=== PATIENT | female | born 1985 | race Caucasian/White ===

== ENCOUNTER 2018-03-24 19:09 | Emergency (ER) | payer BC ==
[2018-03-24] MEDS ORDERED: Ondansetron INJ* 2 MG/ML VIAL IV ONE (20:04)
[2018-03-24] MEDS ORDERED: Pantoprazole IV* 40 MG IV ONE (20:05)
[2018-03-24 20:24] LABS: ABS Basophils 0.1 10^3/ul (0-0.2); ABS Eosinophils 0.1 10^3/ul (0-0.6); ABS Lymphocytes 3.4 10^3/ul (1.0-4.8); ABS Monocytes 0.8 10^3/ul (0-0.8); ABS Neutrophils 6.2 10^3/ul (1.5-7.7); ABS Nucleated RBC 0 10^3/ul; Eosinophil % 1.3 % (0-6); Hematocrit 39 % (35-47); Hemoglobin 13.2 g/dl (12.0-16.0); Mean Corpuscular HGB Conc 34 g/dl (31-36); Mean Corpuscular Hemoglobin 29 pg (27-31); Mean Corpuscular Volume 84 fL (80-97); Mean Platelet Volume 8.2 um3 (7.4-10.4); Nucleated Red Blood Cells % 0.1; Platelet Count 319 10^3/ul (150-450); Red Blood Count 4.59 10^6/ul (4.00-5.40); Red Cell Distribution Width 13 % (10.5-15); White Blood Count 10.6 10^3/ul (3.5-10.8)
--- NOTE | 2018-03-24 20:25 | ED ---
GI/ HPI - HPI Summary HPI Summary: 32-year-old female presents with abdominal pain for the past 3 days. She states she's had this pain for the past month. She states that she had negative u/s so they have been treating her as a gastritis with omeprazole and sulfracate which she has been on for the past month. She states that her primary told her if gets worse come to ER. She states her pain was better until the past couple days and then the pain got worst. She denies any blood in her stool. She admits to nausea but no vomiting. No dysuria. No urgency or frequency. She denies any abnormal vaginal discharge. She has not eatten anything different. The pain is sharp. Does not change with food. She denies any ETOH or ibuprofen use. She denies any fevers. - History of Current Complaint Chief Complaint: EDAbdPain Time Seen by Provider: 03/24/18 20:01 Stated Complaint: ABD PAIN Hx Last Menstrual Period: MIRENA IUD Pain Intensity: 4 - Allergy/Home Medications Allergies/Adverse Reactions: Allergies Allergy/AdvReac Type Severity Reaction Status Date / Time No Known Allergies Allergy Verified 05/16/16 21:34 PMH/Surg Hx/FS Hx/Imm Hx Endocrine/Hematology History: Denies: Hx Diabetes, Hx Thyroid Disease Cardiovascular History: Reports: Hx Angina, Hx Hypertension Denies: Hx Congestive Heart Failure, Hx Deep Vein Thrombosis, Hx Myocardial Infarction, Hx Pacemaker/ICD Respiratory History: Denies: Hx Asthma, Hx Chronic Obstructive Pulmonary Disease (COPD), Hx Lung Cancer, Hx Pneumonia, Hx Pulmonary Embolism GI History: Reports: Hx Gastroesophageal Reflux Disease Denies: Hx Ulcer Neurological History: Denies: Hx Seizures Psychiatric History: Reports: Hx Anxiety, Hx Depression - Surgical History Surgery Procedure, Year, and Place: DISCECTOMY. right knee laparoscope - cleaned out under cap Infectious Disease History: No Infectious Disease History: Denies: Hx Clostridium Difficile, Hx Hepatitis, Hx Human Immunodeficiency Virus (HIV), Hx of Known/Suspected MRSA, Hx Shingles, Hx Tuberculosis, Hx Known/ Suspected VRE, Hx Known/Suspected VRSA, History Other Infectious Disease, Traveled Outside the [place] in Last 30 Days - Family History Known Family History: Positive: Cardiac Disease, Hypertension - Social History Alcohol Use: None Substance Use Type: Reports: None Hx Tobacco Use: Yes - Former cigarette smoker, current eCigarette user Smoking Status (MU): Light Every Day Tobacco Smoker Type: Cigarettes Amount Used/How Often: 5-6 CIG/DAY Have You Smoked in the Last Year: Yes Review of Systems Negative: Fever Negative: Chest Pain Negative: Shortness Of Breath Positive: Abdominal Pain, Nausea. Negative: Vomiting, Diarrhea All Other Systems Reviewed And Are Negative: Yes Physical Exam Triage Information Reviewed: Yes Vital Signs On Initial Exam: Initial Vitals Temp Pulse Resp BP Pulse Ox 98.4 F 90 20 147/93 97 03/24/18 19:13 03/24/18 19:13 03/24/18 19:13 03/24/18 19:13 03/24/18 19:13 Vital Signs Reviewed: Yes Appearance: Positive: Well-Appearing Skin: Positive: Warm, Dry Head/Face: Positive: Normal Head/Face Inspection Eyes: Positive: Normal, Conjunctiva Clear ENT: Positive: Pharynx normal Respiratory/Lung Sounds: Positive: Clear to Auscultation, Breath Sounds Present Cardiovascular: Positive: Normal, RRR Abdomen Description: Positive: Soft, Other: - tenderness RUQ pain Bowel Sounds: Positive: Present Musculoskeletal: Positive: Normal Neurological: Positive: Normal Psychiatric: Positive: Normal Diagnostics - Vital Signs Vital Signs Temp Pulse Resp BP Pulse Ox 03/24/18 19:13 98.4 F 90 20 147/93 97 - Laboratory Result Diagrams: 03/24/18 20:08 03/24/18 20:08 Lab Statement: Any lab studies that have been ordered have been reviewed, and results considered in the medical decision making process. - Ultrasound No standard instances Ultrasound Interpretation: Positive (See Comments) - IMPRESSION: 1. No shadowing gallstones. Mildly thickened gallbladder wall, likely secondary to partial gallbladder contraction. 2. Pancreas obscured by bowel gas. 3. Hepatic steatosis Ultrasound Interpretation Completed By: Radiologist NICOLE Course/Dx - Course Course Of Treatment: 32-year-old female presents with abdominal pain for the past 3 days. She states she's had this pain for the past month. She states that she had negative u/s so they have been treating her as a gastritis with omeprazole and sulfracate which she has been on for the past month. She states that her primary told her if gets worse come to ER. She states her pain was better until the past couple days and then the pain got worst. She denies any blood in her stool. She admits to nausea but no vomiting. No dysuria. No urgency or frequency. She denies any abnormal vaginal discharge. She has not eatten anything different. The pain is sharp. Does not change with food. She denies any ETOH or ibuprofen use. She denies any fevers. on exam has tenderness RUQ. wbc normal. crp normal. lipase normal. urine likely contaminant. u/s shows contraction. pain could be due to biliary colic vs gastritis. patient will add on pepcid to meds taking and follow up with GI. patient understand and agrees with plan. - Diagnoses Differential Diagnoses - Female: Gall Bladder Disease, Gastritis, Pancreatitis Provider Diagnoses: Abdominal pain Discharge - Sign-Out/Discharge Documenting (check all that apply): Patient Departure - Discharge Plan Condition: Good Disposition: HOME Patient Education Materials: Abdominal Pain (ED) Referrals: Familia PITT,Deyvi Rudd [Primary Care Provider] - Samy Enamorado MD [Medical Doctor] - Additional Instructions: Follow up with GI continue meds as prescribed by primary avoid fatty foods Return to ED if develop fever or any new or worsening symptoms - Billing Disposition and Condition Condition: GOOD Disposition: Home
[2018-03-24 20:35] LABS: EGFR Non-African American 80.9 (>60)
[2018-03-24 20:56] LABS: Urine Appearance Clear; Urine Blood 2+ (Negative); Urine Color Yellow; Urine Ketones Negative (Negative); Urine Protein Negative (Negative); Urine Red Blood Cell 1+(3-5/hpf) (Absent); Urine Urobilinogen Negative (Negative); Urine White Blood Cell Trace(0-5/hpf) (Absent)
--- NOTE | 2018-03-24 22:25 | RAD ---
EXAM: US Abdomen Limited, Right Upper Quadrant CLINICAL HISTORY: 32 years old, female; Pain; Abdominal pain; Localized; Right upper quadrant (ruq); Additional info: Ruq pain TECHNIQUE: Real-time ultrasound of the right upper quadrant with image documentation. COMPARISON: No relevant prior studies available. FINDINGS: Limitations: The study was limited by bowel gas. Liver: The liver is diffusely echogenic consistent with fatty infiltration. No intrahepatic bile duct dilation. Gallbladder: Gallbladder wall appears mildly thickened, but assessment is limited by incomplete distention. No calcified gallstones identified. Common bile duct: Could not be visualized due to bowel gas. Pancreas: The pancreas is obscured by bowel gas. Right kidney: The right kidney measures 10.9 x 4.8 x 6 cm. No stones. No hydronephrosis. IMPRESSION: 1. No shadowing gallstones. Mildly thickened gallbladder wall, likely secondary to partial gallbladder contraction. 2. Pancreas obscured by bowel gas. 3. Hepatic steatosis
[2018-03-24 23:03] VITALS: BP 129/90
== END 2018-03-24 23:03 | disposition home or self-care (01) ==
LOC: ED 19:09
DX: R10.11 Right upper quadrant pain (principal); F17.210 Nicotine dependence, cigarettes, uncomplicated; I10 Essential (primary) hypertension; K76.0 Fatty (change of) liver, not elsewhere classified
CPT/HCPCS: 36415; 76705; 80053; 81003; 81015; 83690; 84702; 85025; 86140; 87086; 96374; 96375; 99283; J2405

== ENCOUNTER 2018-07-08 10:38 | Emergency (ER) | payer BC ==
--- OUTSIDE RECORDS SUMMARY | 2018-07-08 10:53 | XMS REPORT | Continuity of Care Document ---
:1985 External Reference #:[id number] Author Name Leeann Hanley Care Team Providers Name Role Phone Deyvi Barbosa MD Primary Care Physician Unavailable Payers Type Date Identification Numbers Payment Provider Subscriber Effective: Policy Number: [id number] [employer] Raquel Garcia 2017 PayID: [id number] [address] [address] [place] [address] Expires: 2017 Policy Number: [id number] [employer] Raquel Garcia PayID: [id number] [address] [address] [place] [address] Advance Directives Description No Information Available Problems Date Description Provider Status Onset: 03/28/2014 Gastroesophageal reflux disease Samy Enamorado MD Active Onset: 03/28/2017 Constipation Samy Enamorado MD Active Onset: 02/25/2017 Tachycardia Samy Enamorado MD Active Onset: 03/28/2016 Obesity Samy Enamorado MD Active Family History Date Family Member(s) Problem(s) Comments Father due to Unknown Causes () Father due to MGF - [place] - still () - MGM-uncontrolled living AFIB HTN Mother Diabetes Mother Hypertension Mother Hypertension SVT Social History Type Date Description Comments Sex Unknown Marital Status Single Lives With Children 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 018 empty Fei, stomach in MD morning Sucralfate Active Tablets 1gm 1 gram Unknown 018 before meals and at bedtime Diltiazem CD Active Caps ER 180mg 30caps 1 by mouth R00.0 Qutaybeh 017 24HR every day Kristen Diaz M.D. Omeprazole Hx Capsules DR 20mg 1 by mouth Unknown 018 - every day since 018 [facility] ER Cardizem Hx Tablets 30mg 90tabs 1 by mouth Qutaybdilia 017 - tid S. Son Diaz M.D. Metoprolol 0 Hx Tablets 25mg 1 by mouth Unknown Tartrate 000 - twice a day 017 Lisinopril /0 Hx Tablets 10mg 1 by mouth Unknown 000 - every day 017 Immunizations Description No Information Available Vital Signs Date Vital Result Comment 06/11/2018 3:17pm Height 64 inches 5'4" Weight 249.00 lb Heart Rate 78 /min BP Systolic 138 mmHg BP Diastolic 78 mmHg Respiratory Rate 18 /min Body Temperature 97.9 F Pain Level 0 BMI (Body Mass Index) 42.7 kg/m2 04/09/2018 4:23pm Height 64 inches 5'4" Weight 246.50 lb W/ Shoes Heart Rate 88 /min BP Systolic Sitting 132 mmHg Lue Large Cuff BP Diastolic Sitting 88 mmHg Lue Large Cuff BMI (Body Mass Index) 42.3 kg/m2 Ejection Fraction 55-60% ECHO 12/28/16 03/28/2018 8:48am Height 64 inches 5'4" Weight 249.00 lb Heart Rate 96 /min BP Systolic 134 mmHg BP Diastolic 97 mmHg Body Temperature 98.4 F O2 % BldC Oximetry 98 % BMI (Body Mass Index) 42.7 kg/m2 05/12/2017 9:47am Height 64 inches 5'4" Weight 255.00 lb with flip flops Heart Rate 96 /min BP Systolic Sitting 120 mmHg Lue large cuff BP Diastolic Sitting 82 mmHg Lue large cuff BP Systolic Standing 122 mmHg Lue large cuff BP Diastolic Standing 86 mmHg Lue large cuff Respiratory Rate 16 /min BMI (Body Mass Index) 43.8 kg/m2 Ejection Fraction 55-60% echo 12/28/16 03/28/2017 12:55pm Height 64 inches 5'4" Weight 248.00 lb with shoes Heart Rate 96 /min BP Systolic Sitting 142 mmHg Lue lrg cuff BP Diastolic Sitting 90 mmHg Lue lrg cuff BP Systolic Standing 142 mmHg Lue lrg cuff BP Diastolic Standing 98 mmHg Lue lrg cuff Respiratory Rate 16 /min BMI (Body Mass Index) 42.6 kg/m2 Ejection Fraction 55-60% 12/28/2016-echo 11/30/2016 1:50pm Height 64 inches 5'4" Weight 243.25 lb with shoes Heart Rate 98 /min BP Systolic 132 mmHg Ra lrg cuff BP Diastolic 84 mmHg Ra lrg cuff BP Systolic Sitting 116 mmHg LA lrg cuff BP Diastolic Sitting 84 mmHg LA lrg cuff BMI (Body Mass Index) 41.7 kg/m2 Results Test Date Facility Test Result H/L Range Note Laboratory test 05/08/2018 [facility] Clotest SEE RESULT [address] [place] [address] [phone] Laboratory test 05/08/2018 [facility] Surgical SEE RESULT [address] [place] [address] [phone] 1 SEE RESULT BELOW Name: RAQUEL GARCIA : [address]: Samy Enamorado MD Acct: [id number] Unit: [id number] AGE: 32 Location: ENDO Re05/08/18 SEX: F Status: REG REF SPEC: [id number] YOLIE: 05/08/18-1099 DR: Samy Enamorado MD REQ: [id number] RECD: 05/08/18 STATUS: NIDIA HEREDIA DR: Deyvi Barbosa MD _ SOURCE: GAS ANTRUM SPDESC: ORDERED: Clotest Procedure Result Reported Site Clotest Final 05/09/18800 ML Clotest Negative * ML - Main Lab . END OF REPORT DEPARTMENT OF PATHOLOGY, [address] [place] [address] Zain Strange M.D. Director [facility] # [id number] 2 SEE RESULT BELOW Name: RAQUEL GARCIA : [address]: Samy Enamorado MD Acct: [id number] Unit: [id number] AGE: 32 Location: ENDO Re05/08/18 SEX: F Status: DEP REF SPEC: [id number] YOLIE: 05/08/18-9 [facility] DR: Samy Enamorado MD REQ: [id number] RECD: 05/08/18 STATUS: RODO HEREDIA DR: Deyvi Barbosa MD _ ORDERED: LEVEL 4 FINAL DIAGNOSIS Gastroesophageal junction, biopsy: -- Squamous and columnar mucosa with chronic inflammation. -- Intestinal metaplasia is absent. -- Dysplasia is absent. CLINICAL HISTORY Epigastric pain POST-OPERATIVE DIAGNOSIS EGD: esophagus - normal; no erosions, esophagogastric 38, nodule at 8:00; biopsy (4); stomach - normal; duodenum - normal; conclusions: esophagitis with nodule; gastric retention; epigastric pain; obesity GROSS DESCRIPTION The specimen is received in formalin labeled, Biopsy EG Junction, and consists of a 0.6 x 0.5 x 0.2 cm aggregate of peng-red irregular soft tissue fragments which is submitted entirely in one cassette. Signed by and Reported on: Rosanne Mena MD 05/09/18 1111 END OF REPORT DEPARTMENT OF PATHOLOGY, [address] [place] [address] Zain Strange M.D. Director [facility] # [id number] Procedures Date Code Description Status 05/08/2018 45047 Endoscopy Upper GI Biopsy Completed 04/09/2018 87363 EKG Tracing & Interpretation Completed 05/03/2017 53704 Holter Monitor Review (24 hr)dr review & interp only Completed 05/02/2017 03774 ECG Monitor/Recording W/Visual Superimposition Scanning Completed 01/04/2017 19617 Treadmill Interp/Report Only Completed 01/04/2017 85046 Stress Test Supervsn W/Out I/R Completed 12/28/2016 02403 ECHO Transthoracic, Real-Time 2D With Doppler And Color Completed Flow 12/20/2016 59673 ECHO Stress Test Incl Perf Contiuous ekg Monitoring W/Phys Completed Superv 12/20/2016 13847 Holter Monitor Review (24 hr)dr review & interp only Completed 12/15/2016 14701 ECG Monitor/Recording W/Visual Superimposition Scanning Completed 11/30/2016 09734 EKG Tracing & Interpretation Completed Encounters Type Date Location Provider Dx Diagnosis Office Visit 06/11/2018 [facility] Samy Horn R10.13 Epigastric pain 2:15p MD Fei K21.9 Gastro-esophageal reflux disease without esophagitis Office Visit 04/09/2018 4:40p Sonu Peterson E55.9 [facility] Danyel Diaz deficiency, unspecified R00.0 Tachycardia, unspecified I10 Essential (primary) hypertension Office Visit 03/28/2018 [facility] Samy Horn R10.816 Epigastric 8:15a MD Fei abdominal tenderness K59.00 Constipation, unspecified R63.5 Abnormal weight gain R00.0 Tachycardia, unspecified Office Visit 05/12/2017 10:00a [facility] Brit Crowell, R00.0 Tachycardia, Of [facility] unspecified I10 Essential (primary) hypertension Office Visit 03/28/2017 1:00p [facility] Brit Crowell, I10 Essential (primary) Of [facility] hypertension R00.0 Tachycardia, unspecified R00.2 Palpitations R06.02 Shortness of breath Office Visit 01/09/2017 [facility] Qutaybeh S. R00.0 Tachycardia, 11:00a Cardiology Of Danyel Diaz unspecified [facility] I10 Essential (primary) hypertension R00.2 Palpitations E55.9 Vitamin D deficiency, unspecified Office Visit 11/30/2016 2:20p [facility] Janie S. I10 Essential Danyel Diaz (primary) hypertension R00.0 Tachycardia, unspecified R00.2 Palpitations R07.9 Chest pain, unspecified E66.9 Obesity, unspecified R94.31 Abnormal electrocardiogram [ECG] [EKG] Plan of Treatment Future Appointment(s):12/10/2018 2:00 pm - Samy Enamorado MD at [facility] [id number]/19/2018 - Samy Enamorado, MDR10.13 Epigastric painFollow up :6 thsnzxA26.9 Gastro-esophageal reflux disease without esophagitisFollow up:6 months
[2018-07-08 11:17] VITALS: BP 132/82
--- NOTE | 2018-07-08 11:52 | UC ---
Respiratory Complaint HPI - HPI Summary HPI Summary: has had cold symptoms for 4 weeks, over past week she has become worse with sinus pain and pressure, and bilateral ear pain and tactile fever has been using OTC cold med w/o relief - History of Current Complaint Chief Complaint: UCRespiratory Stated Complaint: SINUS PAIN Time Seen by Provider: 07/08/18 11:02 Hx Obtained From: Patient Hx Last Menstrual Period: mirana ?: No Onset/Duration: Gradual Onset Severity Initially: Mild Severity Currently: Mild Pain Intensity: 1 Associated Signs And Symptoms: Positive: Fever, Chills, Nasal Congestion, Sinus Discomfort. Negative: Wheezing, Hemoptysis - Allergies/Home Medications Allergies/Adverse Reactions: Allergies Allergy/AdvReac Type Severity Reaction Status Date / Time No Known Allergies Allergy Verified 07/08/18 11:17 PMH/Surg Hx/FS Hx/Imm Hx Previously Healthy: Yes Cardiovascular History: Hypertension GI/ History: Gastroesophageal Reflux - Surgical History Surgical History: Yes Surgery Procedure, Year, and Place: DISCECTOMY. right knee laparoscope - cleaned out under cap - Family History Known Family History: Positive: Cardiac Disease, Hypertension - Social History Occupation: Employed Full-time Lives: With Family Alcohol Use: Rare Substance Use Type: None Smoking Status (MU): Light Every Day Tobacco Smoker Type: Cigarettes Amount Used/How Often: 5-6 CIG/DAY Have You Smoked in the Last Year: Yes Household Exposure Type: Cigarettes Cessation Counseling: Patient Advised to Stop - Immunization History Most Recent Influenza Vaccination: 2014 Review of Systems All Other Systems Reviewed And Are Negative: Yes Constitutional: Positive: Fever, Fatigue Skin: Positive: Negative Eyes: Positive: Negative ENT: Positive: Ear Ache, Sinus Congestion, Sinus Pain/Tenderness. Negative: Nasal Discharge Respiratory: Positive: Negative. Negative: Cough Cardiovascular: Positive: Negative Gastrointestinal: Positive: Negative. Negative: Abdominal Pain, Nausea Genitourinary: Positive: Negative. Negative: Dysuria Musculoskeletal: Positive: Negative Neurological: Positive: Headache - mild over past 2 days Psychological: Positive: Negative Is Patient Immunocompromised?: No Physical Exam Triage Information Reviewed: Yes Appearance: Well-Appearing, No Pain Distress, Obese Vital Signs: Initial Vital Signs Temp 97.8 F 07/08/18 11:14 Pulse 102 07/08/18 11:14 Resp 18 07/08/18 11:14 BP 132/82 07/08/18 11:14 Pulse Ox 97 07/08/18 11:14 Vital Signs Reviewed: Yes Eyes: Positive: Conjunctiva Clear ENT: Positive: Pharynx normal, Nasal congestion, TM dull, Sinus tenderness Dental: Negative: Percussion Tenderness @ Neck: Positive: Supple, Nontender, No Lymphadenopathy Respiratory Exam: Normal Respiratory: Positive: Lungs clear Cardiovascular Exam: Normal Cardiovascular: Positive: RRR Neurological Exam: Normal Psychological Exam: Normal Skin Exam: Normal Skin: Negative: Rashes UC Diagnostic Evaluation - Laboratory O2 Sat by Pulse Oximetry: 97 Respiratory Course/Dx - Differential Dx/Diagnosis Differential Diagnosis/HQI/PQRI: Bronchitis, Influenza, Lower Resp Infection, Sinusitis Provider Diagnosis: Sinusitis Discharge - Sign-Out/Discharge Documenting (check all that apply): Patient Departure All imaging exams completed and their final reports reviewed: No Studies - Discharge Plan Condition: Good Disposition: HOME Prescriptions: Azithromycin TAB* [Zithromax TAB (Z-ADRY) 250 mg #6 tabs] 2 tab PO .TODAY, THEN 1 DAILY #1 adry Referrals: Familia PITT,Deyvi Rudd [Primary Care Provider] - 2 Days (if no improvement) Additional Instructions: drink plenty of fluids and use over the counter decongestant for sinuses use Tylenol as directed for fevers - Billing Disposition and Condition Condition: GOOD Disposition: Home
== END 2018-07-08 11:55 | disposition home or self-care (01) ==
LOC: UCEAST 10:38
DX: J32.9 Chronic sinusitis, unspecified (principal); I10 Essential (primary) hypertension; F17.210 Nicotine dependence, cigarettes, uncomplicated
CPT/HCPCS: 99212; G0463

== ENCOUNTER 2018-11-20 20:59 | Emergency (ER) | payer BC ==
[2018-11-20 21:23] VITALS: BP 139/87
--- NOTE | 2018-11-20 22:21 | UC ---
Respiratory Complaint HPI - HPI Summary HPI Summary: 5-6 DAYS OF SINUS PRESSURE AND RIGHT EAR DISCOMFORT. NO COUGH OR PURULENT NASAL DRAINAGE. HAS SOME MILD POSTNASAL DRIP. NO FEVER, NAUSEA/VOMITING. - History of Current Complaint Chief Complaint: UCGeneralIllness Stated Complaint: SINUS CONGESTION Time Seen by Provider: 11/20/18 22:01 Hx Obtained From: Patient Hx Last Menstrual Period: mirana Onset/Duration: Gradual Onset, Lasting Days, Still Present Timing: Constant Severity Initially: Mild Severity Currently: Mild Pain Intensity: 2 Pain Scale Used: 0-10 Numeric Aggravating Factors: Nothing Alleviating Factors: Nothing Associated Signs And Symptoms: Positive: Sinus Discomfort. Negative: Dyspnea, Fever, Chills, Wheezing - Allergies/Home Medications Allergies/Adverse Reactions: Allergies Allergy/AdvReac Type Severity Reaction Status Date / Time No Known Allergies Allergy Verified 11/20/18 21:23 PMH/Surg Hx/FS Hx/Imm Hx Cardiovascular History: Hypertension - Surgical History Surgical History: Yes Surgery Procedure, Year, and Place: DISCECTOMY. right knee laparoscope - cleaned out under cap - Family History Known Family History: Positive: Cardiac Disease, Hypertension - Social History Alcohol Use: Rare Substance Use Type: None Smoking Status (MU): Light Every Day Tobacco Smoker Type: Cigarettes Amount Used/How Often: 5-6 CIG/DAY Have You Smoked in the Last Year: Yes Household Exposure Type: Cigarettes - Immunization History Most Recent Influenza Vaccination: 2014 Review of Systems All Other Systems Reviewed And Are Negative: Yes Constitutional: Positive: Negative ENT: Positive: Sinus Congestion, Other - PND Respiratory: Positive: Negative Cardiovascular: Positive: Negative Gastrointestinal: Positive: Negative Physical Exam Triage Information Reviewed: Yes Appearance: Well-Appearing, No Pain Distress, Well-Nourished Vital Signs: Initial Vital Signs Temp 97.5 F 11/20/18 21:19 Pulse 97 11/20/18 21:19 Resp 20 11/20/18 21:19 BP 139/87 11/20/18 21:19 Pulse Ox 98 11/20/18 21:19 Vital Signs Reviewed: Yes Eyes: Positive: Conjunctiva Clear ENT: Positive: Hearing grossly normal, Pharynx normal, TMs normal Neck: Positive: Supple, Nontender, No Lymphadenopathy Respiratory Exam: Normal Cardiovascular Exam: Normal Abdomen Description: Positive: Soft Musculoskeletal: Positive: No Edema Neurological: Positive: Alert Psychological: Positive: Age Appropriate Behavior Skin: Negative: Rashes Respiratory Course/Dx - Differential Dx/Diagnosis Provider Diagnosis: Viral sinusitis Discharge - Sign-Out/Discharge Documenting (check all that apply): Patient Departure All imaging exams completed and their final reports reviewed: No Studies - Discharge Plan Condition: Stable Disposition: HOME Patient Education Materials: Sinusitis (ED) Referrals: Familia PITT,Deyvi Rudd [Primary Care Provider] - If Needed Additional Instructions: YOUR SYMPTOMS ARE LIKELY VIRALLY MEDIATED AND SHOULD RESOLVE ON THEIR OWN WITH TIME. NO INDICATION FOR ANTIBIOTICS AT PRESENT. REST, HYDRATE, OTC MEDS NEEDED. SEEK FOLLOW-UP IF YOU ARE NOT IMPROVING OVER THE NEXT 1-2 WEEKS. USE OTC AFRIN FOR NASAL CONGESTION. 2 SPRAYS IN EACH NOSTRIL TWICE DAILY NEEDED. DO NOT USE FOR MORE THAN 3-4 DAYS IN A ROW TO PREVENT DEVELOPING REBOUND CONGESTION. - Billing Disposition and Condition Condition: STABLE Disposition: Home
== END 2018-11-20 22:28 | disposition home or self-care (01) ==
LOC: UCEAST 20:59
DX: J32.9 Chronic sinusitis, unspecified (principal); B97.89 Other viral agents as the cause of diseases classified elsewhere; I10 Essential (primary) hypertension; F17.210 Nicotine dependence, cigarettes, uncomplicated
CPT/HCPCS: 99211; G0463